=== PATIENT | female | born 1960 ===

== ENCOUNTER 2016-07-21 10:39 | Emergency (ER) | payer MEDICAID, MEDICARE, OTHER ==
[2016-07-21 10:40] VITALS: BMI 28.8
[2016-07-21 10:53] VITALS: TEMP 98.3
--- NOTE | 2016-07-21 11:31 | ED PDOC ---
Arrival/HPI - General Chief Complaint: Pain, Chronic Time Seen by Provider: 07/21/16 11:00 Historian: Patient - History of Present Illness Narrative History of Present Illness (Text): 07/21/16 11:31 A 55 year old female was sent to the emergency department by PMD for dizziness and lightheadedness. Patient reports she went to PMD to receive an injection for her back pain but instead was sent to emergency room for further evaluation. Patient reports worsening neck pain radiating to upper back and left shoulder for the past few years. She notes pain is exacerbated with movement. Patient reports she was recently diagnosed with H. pilori and notes she vomited the last dose of antibiotics she took. Patient denies any fever, chills, chest pain, shortness of breath, cough, headache, numbness, weakness or any other complaints. Patient also reports she was recently treated for a UTI and complicated antibiotic course. PMD: Dr. Jarad Eng Time/Duration: Prior to Arrival Symptom Course: Unchanged Quality: Other Context: Other Past Medical History - Provider Review Nursing Documentation Reviewed: Yes - Infectious Disease Hx of Infectious Diseases: None - Tetanus Immunization Tetanus Immunization: Unknown - Cardiac Hx Cardiac Disorders: No - Pulmonary Hx Respiratory Disorders: No - Neurological Hx Neurological Disorder: No - HEENT Hx HEENT Disorder: No - Renal Hx Renal Disorder: No - Endocrine/Metabolic Hx Endocrine Disorders: No - Hematological/Oncological Hx Blood Disorders: No - Integumentary Hx Dermatological Disorder: No - Musculoskeletal/Rheumatological Hx Musculoskeletal Disorders: Yes Hx Back Pain: Yes Hx Herniated Disk: Yes (CERVICAL AND LUMBAR) - Gastrointestinal Hx Gastrointestinal Disorders: Yes Hx Hemorrhoids: Yes Other/Comment: hpylori, barretts esophagus - Genitourinary/Gynecological Hx Genitourinary Disorders: No - Psychiatric Hx Psychophysiologic Disorder: Yes Hx Anxiety: Yes Hx Depression: Yes Hx Substance Use: No - Surgical History Hx Appendectomy: Yes Hx Hysterectomy: Yes (partial) - Anesthesia Hx Anesthesia: Yes Hx Anesthesia Reactions: No Hx Malignant Hyperthermia: No Family/Social History - Physician Review Nursing Documentation Reviewed: Yes Family/Social History: No Known Family HX Smoking Status: Light Smoker < 10 Cigarettes Daily Hx Alcohol Use: No Hx Substance Use: No Allergies/Home Meds Allergies/Adverse Reactions: Allergies Penicillins Allergy (Verified 07/21/16 10:58) URTICARIA Home Medications: Home Meds Medication Instructions Recorded Confirmed diaZEpam [Valium] 5 mg PO DAILY 05/04/16 07/21/16 Pantoprazole [Protonix EC Tab] 20 mg PO DAILY 07/21/16 07/21/16 Sertraline [Zoloft] 100 mg PO DAILY 07/21/16 07/21/16 traMADol [Ultram] 50 mg PO DAILY 07/21/16 07/21/16 traZODone [Desyrel] 100 mg PO DAILY 07/21/16 07/21/16 Review of Systems - Physician Review All systems were reviewed & negative as marked: Yes - Review of Systems Constitutional: absent: Fevers, Night Sweats Respiratory: absent: SOB Cardiovascular: absent: Chest Pain Gastrointestinal: Vomiting Musculoskeletal: Back Pain, Neck Pain, Other (left shoulder pain) Neurological: Dizziness (/Lightheadedness). absent: Headache, Focal Weakness (/ Numbness) Physical Exam Vital Signs Reviewed: Yes Vital Signs Temp Pulse Resp BP Pulse Ox 07/21/16 13:54 66 20 151/88 H 99 07/21/16 12:38 56 L 20 148/98 H 98 07/21/16 10:52 98.3 F 67 18 148/90 100 Temperature: Afebrile Blood Pressure: Normal Pulse: Regular Respiratory Rate: Normal Appearance: Positive for: Well-Appearing, Non-Toxic, Comfortable Pain Distress: None Mental Status: Positive for: Alert and Oriented X 3 - Systems Exam Head: Present: Atraumatic, Normocephalic Pupils: Present: PERRL Extroacular Muscles: Present: EOMI Conjunctiva: Present: Normal Mouth: Present: Moist Mucous Membranes Neck: Present: Normal Range of Motion Respiratory/Chest: Present: Clear to Auscultation, Good Air Exchange. No: Respiratory Distress, Accessory Muscle Use Cardiovascular: Present: Regular Rate and Rhythm, Normal S1, S2. No: Murmurs Abdomen: Present: Normal Bowel Sounds. No: Tenderness, Distention, Peritoneal Signs Back: Present: Normal Inspection Upper Extremity: Present: Normal Inspection. No: Cyanosis, Edema Lower Extremity: Present: Normal Inspection. No: Edema Neurological: Present: GCS=15, CN II-XII Intact, Speech Normal Skin: Present: Warm, Dry, Normal Color. No: Rashes Psychiatric: Present: Alert, Oriented x 3, Normal Insight, Normal Concentration Medical Decision Making ED Course and Treatment: 07/21/16 11:30 Impression: A 55 year old female sent in for lightheadedness and dizziness. Patient reports worsening neck pain radiating to upper back and left shoulder Differential Diagnosis included but are not limited to: Gastritis, recently diagnosed with H. pylori, Neck pain Plan: -- Labs -- Morphine and Zofran -- Reassess and disposition Progress Notes: EKG shows NSR at [address]-segment elevations, normal intervals. Interpreted by me. Case discussed with Dr. Jarad Eng, who states patient was seen prior to arrival to receive injections but became dizzy and lightheaded so he sent her in for further evaluation. On reevaluation prior to discharge patient felt better. Pain improved. She was able to rotated neck with improvement. No numbness or weakness. No back pain. She is able to walk without ataxia. She is able to tolerating fluids po without vomiting. 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 - Lab Interpretations Lab Results: 07/21/16 11:35 07/21/16 11:35 Lab Results 07/21/16 11:50: pO2 162 H, VBG pH 7.40, VBG pCO2 38.0 L, VBG HCO3 23.5, VBG O2 Sat (Calc) 99.7 H, VBG Base Excess -1.1 L 07/21/16 11:35: PT 10.5, INR 0.97, APTT 33.7 H 07/21/16 11:35: Sodium 140, Potassium 4.5, Chloride 105, Carbon Dioxide 26, Anion Gap 14, BUN 13, Creatinine 0.9, Est GFR ( Amer) > 60, Est GFR (Non- Af Amer) > 60, Random Glucose 99, Calcium 9.2, Total Bilirubin 0.5, AST 33, ALT 49, Alkaline Phosphatase 88, Total Protein 7.4, Albumin 4.1, Globulin 3.3, Albumin/Globulin Ratio 1.2, Lipase 37 07/21/16 11:35: WBC 7.9, RBC 4.81, Hgb 15.1, Hct 42.7, MCV 88.8, MCH 31.4, MCHC 35.4, RDW 13.4, Plt Count 252, MPV 10.6, Gran % 67.6, Lymph % (Auto) 25.3, [place] % (Auto) 6.3 H, Eos % (Auto) 0.5 L, Baso % (Auto) 0.3, Gran # 5.36, Lymph # 2.0 , [place] # 0.5, Eos # 0.0, Baso # 0.02 I have reviewed the lab results: Yes - Medication Orders Current Medication Orders: Discontinued Medications Diazepam (Valium) 10 mg PO ONCE STA PRN Reason: Protocol Stop: 07/21/16 12:25 Last Admin: 07/21/16 12:30 Dose: 10 mg Morphine Sulfate (Morphine) 4 mg IVP STAT STA Stop: 07/21/16 11:42 Last Admin: 07/21/16 11:47 Dose: 4 mg Ondansetron HCl (Zofran Inj) 4 mg IVP STAT STA Stop: 07/21/16 11:42 Last Admin: 07/21/16 11:47 Dose: 4 mg - Scribe Statement The provider has reviewed the documentation as recorded by the Manpreet Landaverde Provider Scribe Attestation: All medical record entries made by the Scribe were at my direction and personally dictated by me. I have reviewed the chart and agree that the record accurately reflects my personal performance of the history, physical exam, medical decision making, and the department course for this patient. I have also personally directed, reviewed, and agree with the discharge instructions and disposition. Disposition/Present on Arrival - Present on Arrival Any Indicators Present on Arrival: No History of DVT/PE: No History of Uncontrolled Diabetes: No Urinary Catheter: No History of Decub. Ulcer: No History Surgical Site Infection Following: None - Disposition Have Diagnosis and Disposition been Completed?: Yes Diagnosis: Neck pain, Abdominal pain Disposition: HOME/ ROUTINE Disposition Time: 14:14 Patient Plan: Discharge Condition: IMPROVED Discharge Instructions (ExitCare): Cervical Strain (DC) Additional Instructions: Ms Rice, thank you for letting us take care of you today. Your provider was Dr. Kim. You were treated for Neck Pain, Abdominal Pain. The emergency medical care you received today was directed at your acute symptoms. If you were prescribed any medication, please fill it and take as directed. It may take several days for your symptoms to resolve. Return to the Emergency Department if your symptoms worsen, do not improve, or if you have any other problems. Please contact your doctor or call one of the physicians/clinics you have been referred to that are listed on the Patient Visit Information form that is included in your discharge packet. Bring any paperwork you were given at discharge with you along with any medications you are taking to your follow up visit. Our treatment cannot replace ongoing medical care by a primary care provider (PCP) outside of the emergency department. Thank you for allowing the [facility] team to be part of your care today. If you had an X-Ray or CT scan: A Radiologist will review the ED reading if any change in treatment is needed we will contact you. If you had a blood, urine, or wound culture: It will take several days for the results, if any change in treatment is needed we will contact you. If you had an STI test: It will take 48 hours for the results. Please call after 1 week if you have not heard back. Prescriptions: Cyclobenzaprine [Flexeril] 5 mg PO Q8 PRN #14 tab PRN Reason: Muscle Spasm Ranitidine HCl [Zantac] 150 mg PO BID PRN #30 tablet PRN Reason: Pain, Mild (1-3) Referrals: Albertina CHUN,Jarad Bullard [Non-Staff] - Follow up with primary Forms: [employer]noise (Kiswahili), WORK NOTE
[2016-07-21] MEDS ORDERED: Sodium Chloride 0.9% 500 ML IV STA (11:32)
[2016-07-21] MEDS ORDERED: Morphine 4 mg/ml ISec IVP STA (11:41)
[2016-07-21 11:49] LABS: ADD MANUAL DIFF? NO
[2016-07-21 11:59] LABS: VENOUS BLOOD GAS BASE EXCESS -1.1 mmol/L (0.0-2.0)
[2016-07-21 12:02] LABS: BASO # 0.02 K/mm3 (0.0-2.0); BASO % 0.3 % (0.0-3.0); EOS % 0.5 % (1.5-5.0); GRAN # 5.36 (1.4-6.5); GRAN % 67.6 % (50.0-68.0); HEMATOCRIT 42.7 % (36.0-48.0); LYMPH % 25.3 % (22.0-35.0); MEAN CELL VOLUME 88.8 fL (80.0-105.0); MEAN CORPUSCULAR HEMOGLOBIN 31.4 pg (25.0-35.0); MEAN CORPUSCULAR HGB CONC 35.4 g/dl (31.0-37.0); MEAN PLATELET VOLUME 10.6 fl (7.0-11.0); MONO # 0.5 (0.1-0.6); MONO % 6.3 % (1.0-6.0); PLATELET COUNT 252 10^3/uL (120.0-450.0); RED CELL DISTRIBUTION WIDTH 13.4 % (11.5-14.5); WHITE BLOOD COUNT 7.9 10^3/ul (4.5-11.0)
[2016-07-21 12:08] LABS: ALB/GLOB RATIO 1.2 (1.1-1.8); ALKALINE PHOSPHATASE 88 U/L (38-133); ALT/SGPT 49 U/L (7-56); AST/SGOT 33 U/L (15-39); BILIRUBIN,TOTAL 0.5 mg/dL (0.2-1.3); BLOOD UREA NITROGEN 13 mg/dL (7-21); CALCIUM 9.2 mg/dL (8.4-10.5); CARBON DIOXIDE 26 mmol/L (21-33); CHLORIDE 105 mmol/L (98-107); GFR AFRICAN-AMERICAN > 60; GLUCOSE,RANDOM 99 mg/dL (70-110); LIPASE 37 U/L (23-300); POTASSIUM 4.5 mmol/L (3.6-5.0); SODIUM 140 mmol/L (132-148); TOTAL PROTEIN 7.4 g/dL (5.8-8.3)
[2016-07-21 12:19] LABS: INR 0.97 (0.93-1.08); PARTIAL THROMBOPLASTIN TIME 33.7 Seconds (23.7-30.8)
[2016-07-21 12:38] VITALS: RESP 20
[2016-07-21 13:54] VITALS: BP 151/88; PULSE 66; O2SAT 99
--- NOTE | 2016-07-21 22:44 | CARD ---
APPROVED REPORT EKG Measurement Heart [id number] <Conclusion> Normal sinus rhythm Normal ECG
== END 2016-07-21 14:14 | disposition home or self-care (01) ==
LOC: ED 10:39
DX: M54.2 Cervicalgia (principal); R10.9 Unspecified abdominal pain
CPT/HCPCS: 80053; 82803; 83690; 85025; 85610; 85730; 93005; 96374; 96375; 99285; J2270; J2405

== ENCOUNTER 2016-10-17 06:24 | Day surgery (SDC) | payer MEDICARE ==
[2016-10-17] MEDS ORDERED: Iohexol 240 (50 ml) ONE (07:23)
[2016-10-17 07:41] LABS: BASO # 0.05 K/mm3 (0.0-2.0); BASO % 0.7 % (0.0-3.0); EOS # 0.1 (0.0-0.7); EOS % 1.5 % (1.5-5.0); GRAN # 3.91 (1.4-6.5); GRAN % 56.8 % (50.0-68.0); HEMATOCRIT 42.8 % (36.0-48.0); LYMPH # 2.4 (1.2-3.4); LYMPH % 34.7 % (22.0-35.0); MEAN CORPUSCULAR HEMOGLOBIN 30.4 pg (25.0-35.0); MEAN CORPUSCULAR HGB CONC 34.1 g/dl (31.0-37.0); MEAN PLATELET VOLUME 10.9 fl (7.0-11.0); MONO # 0.4 (0.1-0.6); MONO % 6.3 % (1.0-6.0); RED CELL DISTRIBUTION WIDTH 13.4 % (11.5-14.5); WHITE BLOOD COUNT 6.9 10^3/ul (4.5-11.0)
[2016-10-17 07:47] LABS: INR 0.94 (0.93-1.08)
[2016-10-17] MEDS ORDERED: Midazolam 2 MG/2 ML VIAL ONE (08:00)
[2016-10-17] MEDS ORDERED: Propofol 10 mg/ml Inj (20 ML) ONE (08:00)
[2016-10-17] MEDS ORDERED: Rocuronium 10 mg/ml (5 ml) ONE (08:01)
[2016-10-17] MEDS ORDERED: Ciprofloxacin 400mg/200ml D5W 400 MG/200 ML BAG IVPB ONE (08:05)
[2016-10-17 08:11] LABS: AMYLASE 83 U/L (35-125); BLOOD UREA NITROGEN 12 mg/dL (7-21); CALCIUM 8.9 mg/dL (8.4-10.5); CARBON DIOXIDE 29 mmol/L (21-33); CHLORIDE 105 mmol/L (98-107); GFR AFRICAN-AMERICAN > 60; GLUCOSE,RANDOM 89 mg/dL (70-110); LIPASE 74 U/L (23-300); POTASSIUM 4.5 mmol/L (3.6-5.0); SODIUM 142 mmol/L (132-148)
[2016-10-17] MEDS: Bupivacaine 0.5% Inj(30mL) ONE ×2 (08:13→09:18)
[2016-10-17] MEDS ORDERED: Lactated Ringer's 1,000 ML IV SCH (08:30)
[2016-10-17] MEDS ORDERED: Sevoflurane - Inhalation Anesthetic Liq (250 ml) ONE (08:47)
[2016-10-17] MEDS ORDERED: Neostigmine Methylsulfate 3mg/3ml Syringe IV ONE (09:04)
[2016-10-17] MEDS ORDERED: Glycopyrrolate 0.2 mg/ml (2ml vial) ONE (09:04)
[2016-10-17] MEDS ORDERED: HYDROmorphone 0.5 mg/0.5 ml ISec IVP PRN (09:30)
[2016-10-17] MEDS ORDERED: HYDROmorphone 0.5 mg/0.5 ml ISec ONE ×4 (09:38→10:51)
[2016-10-17] MEDS ORDERED: HYDROmorphone 0.5 mg/0.5 ml ISec IVP ONE ×4 (09:38→10:35)
--- NOTE | 2016-10-17 09:50 | RAD ---
PROCEDURE: Operative cholangiogram HISTORY: CHOLANGIOGRAM OPERATIVE COMPARISON: TECHNIQUE: Fluoroscopy was provided in the operating room. 25.6 seconds of fluoroscopy time. Six images were submitted FINDINGS: Contrast flows into the duodenum without obstruction. There are no filling defects. IMPRESSION: As above
[2016-10-17] MEDS ORDERED: Oxycodone/Acetaminophen 5/325 mg Tab PO PRN (10:56)
--- NOTE | 2016-10-17 11:23 | OP ---
PROCEDURE DATE: 10/17/2016 PREOPERATIVE DIAGNOSES: Chronic cholecystitis and cholelithiasis. POSTOPERATIVE DIAGNOSES: Chronic cholecystitis and cholelithiasis. PROCEDURE PERFORMED: Laparoscopic cholecystectomy with intraoperative cholangiogram. SURGEON: Dmitri Rodriguez MD MAINTENANCE MECHANIC 2ND SHIFT: Dr. Lane. TYPE OF ANESTHESIA: General endotracheal anesthesia. ANESTHESIA ADMINISTERED BY: Jace Zhu MD ESTIMATED BLOOD LOSS: Minimal. SPECIMENS: Gallbladder and gallstones. INDICATIONS: The patient is a 55-year-old female with history of recurrent right upper quadrant abdominal pain associated with nausea and occasional vomiting. The patient was seen in the office. Noted to have an ultrasound showing presence of cholelithiasis and was scheduled for laparoscopic cholecystectomy. DESCRIPTION OF PROCEDURE: First standard time-out procedure took place and everybody in the room agreed as to the patient's identity, diagnoses, and procedure to be performed. Using 2 towel clips, the anterior abdominal wall was elevated and Veress needle was inserted through the small incision superior to the umbilicus. The area was previously then anesthetized with lidocaine mixed Marcaine. Once the pneumoperitoneum was obtained, a 12 mm trocar was inserted through this incision and careful evaluation of abdominal cavity revealed the presence of slightly distended gallbladder with some adhesions to the omentum. The second 5 mm trocar was inserted then in the subxiphoid position and careful dissection took place, where the omentum attached to the gallbladder was careful taken off and cystic duct area was exposed. The bladder was grabbed by the infundibulum and cystic duct was completely from its surrounding tissues along its course all the way up to the cystic duct and lymph node. The cystic artery, which was directly behind it was also visualized and from the surrounding tissue. Now the clip was placed on the take off of the cystic duct from the gallbladder and a small incision was made on the side of the cystic duct. The cystic duct cholangiocatheter was inserted and then the cholangiogram was obtained under direct visualization showing prompt flow of dye into the entire biliary tree and emptying of the duodenum without obstruction. I then proceeded with removing cystic duct catheter and clipping the cystic duct distally and transecting it. Cystic artery was also clipped and transected and the gallbladder was carefully taken off of the liver bed using electrocautery. Once completely detached from the liver the area of the right upper quadrant was copiously irrigated and all the irrigant fluid was suctioned out. There was excellent hemostasis. The gallbladder was placed in the EndoCatch bag and removed for the periumbilical incision. The pneumoperitoneum was then closed after the area of entry site of the ports and the abdominal cavity was inspected with direct vision through the scope without any evidence of bleeding. Now the trocars were removed and pneumoperitoneum was released and wounds were closed using 0 Vicryl for the fascia, 3-0 Vicryl for the subcutaneous tissue and 4-0 Monocryl for the skin. A sterile Dermabond dressing was applied to the wounds. The patient tolerated the procedure well and there were no complications. The patient was awakened and extubated and transferred to recovery room for further observation. Dmitri Rodriguez MD
[2016-10-17 12:04] VITALS: TEMP 97.5
[2016-10-17 13:01] VITALS: RESP 20; O2SAT 96
[2016-10-17 15:40] VITALS: BP 110/66; PULSE 18
--- NOTE | 2016-10-19 19:34 | PCM.SURG1 ---
Surgeon's Initial Post Op Note - Surgeon's Notes Surgeon: Michael Carpenter Bridge: PGY4 Pre-Operative Diagnosis: Chronic cholecystitis and cholelithiasis Operative Findings: see op note Post-Operative Diagnosis: Chronic cholecystitis and cholelithiasis Operation Performed: Laparoscopic cholecystectomy, intraoperative cholangiogram Specimen/Specimens Removed: gallbladder Estimated Blood Loss: EBL {In ML}: 10 Blood Products Given: N/A Drains Used: No Drains Post-Op Condition: Good Date of Surgery/Procedure: 10/17/16 Time of Surgery/Procedure: 07:56
== END 2016-10-17 15:45 | disposition home or self-care (01) ==
LOC: SDS 06:24
PROVIDERS: ATTEND General Practice
DX: K80.10 Calculus of gallbladder with chronic cholecystitis without obstruction (principal); E66.9 Obesity, unspecified
CPT/HCPCS: 36415; 47563; 74300; 80048; 82150; 83690; 85025; 85610; 85730; 88304; J0744; J1170; J2001; J2250; J2405; J2704; J2710; J3010; J7120 ×2; Q9966

== ENCOUNTER 2017-07-28 02:15 | Emergency (ER) | payer MEDICARE ==
[2017-07-28 02:45] VITALS: BMI 29.3
[2017-07-28] MEDS ORDERED: Morphine 4 mg/ml ISec IVP STA (02:48)
[2017-07-28 03:07] LABS: URINE BILIRUBIN NEGATIVE (NEGATIVE); URINE BLOOD NEGATIVE (NEGATIVE); URINE GLUCOSE (UA) NEGATIVE (NEGATIVE); URINE LEUKOCYTE ESTERASE TRACE Leu/uL (NEGATIVE); URINE PROTEIN NEGATIVE mg/dL (<30 mg/dL); URINE UROBILINOGEN 0.2 E.U./dL (<1 E.U./dL)
[2017-07-28 03:14] LABS: PROTHROMBIN TIME 10.4 SECONDS (9.4-12.5); URINE APPEARANCE CLEAR (CLEAR); URINE COLOR YELLOW (YELLOW)
[2017-07-28 03:15] LABS: INR 0.91 (0.93-1.08); PARTIAL THROMBOPLASTIN TIME 26.1 Seconds (25.1-36.5)
--- NOTE | 2017-07-28 03:15 | ED PDOC ---
Arrival/HPI - General Chief Complaint: Abdominal Pain Time Seen by Provider: 07/28/17 02:26 Historian: Patient - History of Present Illness Narrative History of Present Illness (Text): 56yo female with history of gastritis, presents with complaints of headache and abdominal pain with associated diarrhea and vomiting, approximately 3 episodes per day, for the past 2 days. Patient states she feels "hot and cold" and had right flank pain as well. She reports a history of ovarian cysts, denies any history of kidney stones or other abdominal surgeries. She denies any hematuria , dysuria, and offers no other medical complaints. Surgical history: Cholecystectomy, right shoulder surgery Past Medical History - Provider Review Nursing Documentation Reviewed: Yes - Travel History Have you recently traveled outside [place] w/in the past 3 mons?: No - Past History Past History: Non-Contributing - Infectious Disease Hx of Infectious Diseases: None - Tetanus Immunization Tetanus Immunization: Unknown - Cardiac Hx Cardiac Disorders: No - Pulmonary Hx Respiratory Disorders: No - Neurological Hx Neurological Disorder: Yes Hx Paralysis: No - HEENT Hx HEENT Disorder: No - Renal Hx Renal Disorder: No - Endocrine/Metabolic Hx Endocrine Disorders: No - Hematological/Oncological Hx Blood Disorders: No Hx Blood Transfusions: No - Integumentary Hx Dermatological Disorder: No - Musculoskeletal/Rheumatological Hx Musculoskeletal Disorders: Yes Hx Back Pain: Yes Hx Herniated Disk: Yes (CERVICAL AND LUMBAR) Hx Osteoarthritis: Yes Hx Osteoporosis: Yes - Gastrointestinal Hx Gastrointestinal Disorders: Yes Hx Gastroesophageal Reflux: Yes Hx Hemorrhoids: Yes Other/Comment: h. pylori, barretts esophagus - Genitourinary/Gynecological Hx Genitourinary Disorders: No - Psychiatric Hx Psychophysiologic Disorder: Yes Hx Anxiety: Yes Hx Depression: Yes Hx Substance Use: No - Surgical History Hx Appendectomy: Yes Hx Cholecystectomy: Yes Hx Hysterectomy: Yes (partial) - Anesthesia Hx Anesthesia: Yes Hx Anesthesia Reactions: No Hx Malignant Hyperthermia: No - Suicidal Assessment Feels Threatened In Home Enviroment: No Family/Social History - Physician Review Nursing Documentation Reviewed: Yes Family/Social History: No Known Family HX Smoking Status: Never Smoked Hx Alcohol Use: No Hx Substance Use: No Allergies/Home Meds Allergies/Adverse Reactions: Allergies Penicillins Allergy (Severe, Verified 07/28/17 02:31) CONVULSIONS Home Medications: Home Meds Medication Instructions Recorded Confirmed Diclofenac Sodium [Voltaren] 25 mg PO BID 07/28/17 07/28/17 Omeprazole 40 mg PO DAILY 07/28/17 07/28/17 Sertraline [Zoloft] 100 mg PO DAILY 07/28/17 07/28/17 Review of Systems - Physician Review All systems were reviewed & negative as marked: Yes - Review of Systems Constitutional: Other (feels "hot and cold") Respiratory: absent: SOB Cardiovascular: absent: Chest Pain Gastrointestinal: Abdominal Pain, Diarrhea, Vomiting Genitourinary Female: absent: Dysuria, Hematuria Neurological: Headache Physical Exam Vital Signs Reviewed: Yes Vital Signs Temp Pulse Resp BP Pulse Ox 07/28/17 05:09 98.0 F 76 18 125/86 100 07/28/17 03:53 85 18 142/92 H 100 07/28/17 02:34 98.1 F 90 20 152/93 H 100 Temperature: Afebrile Pulse: Regular Respiratory Rate: Normal Appearance: Positive for: Well-Appearing, Non-Toxic, Comfortable Pain Distress: Mild Mental Status: Positive for: Alert and Oriented X 3 - Systems Exam Head: Present: Atraumatic, Normocephalic Pupils: Present: PERRL Extroacular Muscles: Present: EOMI Mouth: Present: Moist Mucous Membranes Neck: Present: Normal Range of Motion Respiratory/Chest: Present: Clear to Auscultation, Good Air Exchange. No: Respiratory Distress, Accessory Muscle Use Cardiovascular: Present: Regular Rate and Rhythm, Normal S1, S2. No: Murmurs Abdomen: Present: Tenderness (diffuse tenderness to upper adbomen, right flank ) . No: Distention, Peritoneal Signs Upper Extremity: Present: Normal Inspection. No: Cyanosis, Edema Lower Extremity: Present: Normal Inspection. No: Edema Neurological: Present: GCS=15, CN II-XII Intact, Speech Normal Skin: Present: Warm, Dry, Normal Color. No: Rashes Psychiatric: Present: Alert, Oriented x 3, Normal Insight, Normal Concentration Medical Decision Making ED Course and Treatment: Impression: 56yo female with abdominal pain, headache Differential Diagnosis included but are not limited to: Gastritis, gastroenteritis, pancreatitis, appendicitis, SBO, IBS Plan: -- Labs -- CT Abdomen/Pelvis w/ IV Contrast -- Urinalysis -- Morphine 4mg IV -- Zofran 4mg IV -- IV Fluids -- Reassess and disposition Prior Visits: Notes and results from previous visits were reviewed. Patient was last seen in the emergency department on 07/21/16 for neck pain, and was discharged home. Progress Notes: 07/28/17 04:00 Patient reports persistent pain and nausea. Patient given Dilaudid 1mg IVP and Zofran 4mg IVP. 07/28/17 04:47 Labs reviewed and indicates: -- Elevated LFT (isloated) -- Normal white cough -- Negative lactic acid -- Normal lipase Urinalysis unremarkable. 07/28/17 05:47 Patient reports allergic reaction to the morphine (mild hives noted). Benadryl 25mg IVP given. 07/28/17 06:00 Mild elevation of transaminase, doubt hepatitis and presentation is most likely due to enteritis. Patient to be prescribed anti-emetics and anti-diarrheals. Patient counseled on elevated blood pressure as well. Stable for discharge home, instructed to follow up with PMD in 2-3 days. - Lab Interpretations Lab Results: 07/28/17 02:52 07/28/17 02:52 Lab Results 07/28/17 03:56: Urine Opiates Screen Negative, Urine Methadone Screen Negative, Ur Barbiturates Screen Negative, Ur Phencyclidine Scrn Negative, Ur Amphetamines Screen Negative, U Benzodiazepines Scrn Negative, U Oth Cocaine Metabols Negative, U Cannabinoids Screen Negative 07/28/17 02:52: pO2 75 H, VBG pH 7.33, VBG pCO2 42.0, VBG HCO3 22.1, VBG Total CO2 23.4, VBG O2 Sat (Calc) 97.1 H, VBG Base Excess -3.7 L, VBG Potassium 4.5, Sodium 138.0, Chloride 110.0 H, Glucose 113 H, Lactate 0.9, FiO2 21.0, Venous Blood Potassium 4.5 07/28/17 02:52: Sodium 143, Chloride 110 H, Potassium 4.5, Carbon Dioxide 22, Anion Gap 16, BUN 14, Creatinine 0.8, Est GFR ( Amer) > 60, Est GFR (Non- Af Amer) > 60, Random Glucose 111 H, Calcium 8.9, Total Bilirubin 0.3, AST 43 H D, ALT 67 H, Alkaline Phosphatase 104, Total Protein 7.1, Albumin 4.0, Globulin 3.1, Albumin/Globulin Ratio 1.3, Lipase 54 07/28/17 02:52: Urine Color Yellow, Urine Appearance Clear, Urine pH 6.0, Ur Specific [place] 1.015, Urine Protein Negative, Urine Glucose (UA) Negative, Urine Ketones Negative, Urine Blood Negative, Urine Nitrate Negative, Urine Bilirubin Negative, Urine Urobilinogen 0.2, Ur Leukocyte Esterase Trace H, Urine RBC 0 - 2, Urine WBC 1 - 3, Ur Epithelial Cells 3 - 4, Urine Bacteria Few 07/28/17 02:52: PT 10.4, INR 0.91 L, APTT 26.1 07/28/17 02:52: WBC 9.3 D, RBC 4.54, Hgb 13.9, Hct 39.7, MCV 87.4, MCH 30.6, MCHC 35.0, RDW 13.4, Plt Count 259, MPV 10.5, Gran % 76.3 H, Lymph % (Auto) 17.1 L, [place] % (Auto) 4.7, Eos % (Auto) 1.7, Baso % (Auto) 0.2, Gran # 7.07 H, Lymph # (Auto) 1.6, [place] # (Auto) 0.4, Eos # (Auto) 0.2, Baso # (Auto) 0.02 - RAD Interpretation Narrative RAD Interpretations (Text): 07/28/17 06:03 CT Abdomen/Pelvis FINDINGS: Lung bases: Unremarkable. No mass. No consolidation. ABDOMEN: Liver: Fatty liver. Gallbladder and bile ducts: Prior cholecystectomy. No significant ductal dilation. Pancreas: Unremarkable. No mass. No ductal dilation. Spleen: Unremarkable. No splenomegaly. Adrenals: Unremarkable. No mass. Kidneys and ureters: Unremarkable. No solid mass. No hydronephrosis. Stomach and bowel: Few prominent fluid filled loops of small bowel nonspecific but can be seen in the setting of enteritis or other diarrheal illness. No evidence of obstruction. No mucosal thickening. PELVIS: Appendix: Normal appendix not clearly identified. No secondary signs of acute appendicitis. Bladder: Unremarkable. No mass. Reproductive: Prior hysterectomy. ABDOMEN and PELVIS: Intraperitoneal space: Unremarkable. No free air. No significant fluid collection. Bones/joints: No acute fracture. No dislocation. Soft tissues: Unremarkable. Vasculature: Unremarkable. No abdominal aortic aneurysm. Lymph nodes: Unremarkable. No enlarged lymph nodes. IMPRESSION: 1. Few prominent fluid filled loops of small bowel nonspecific but can be seen in the setting of enteritis or other diarrheal illness. No evidence of obstruction. 2. Fatty liver. 3. Additional chronic/incidental findings as described above. Radiology Orders: 07/28/17 02:47 ABD & PELVIS IV CONTRAST ONLY [CT] Stat - Medication Orders Current Medication Orders: Discontinued Medications Diphenhydramine HCl (Benadryl) 25 mg IVP STAT STA Stop: 07/28/17 05:48 Last Admin: 07/28/17 05:51 Dose: 25 mg IVP Administration Document 07/28/17 05:51 (Rec: 07/28/17 05:52 [id number]) Charges for Administration # of IVP Administrations 1 Hydromorphone HCl (Dilaudid) 1 mg IVP STAT STA Stop: 07/28/17 04:00 Last Admin: 07/28/17 04:20 Dose: 1 mg MAR Pain Assessment Document 07/28/17 04:20 (Rec: 07/28/17 04:39 [place] [id number]) Pain Reassessment Is this a pain reassessment? Yes Pain Scale Used Pain Scale Used Numeric Location Pain Location Body Site Generalized Description Description Sharp Pain Behavior Moaning Crying IVP Administration Document 07/28/17 04:20 (Rec: 07/28/17 04:39 [place] [id number]) Charges for Administration # of IVP Administrations 1 Morphine Sulfate (Morphine) 4 mg IVP STAT STA Stop: 07/28/17 02:49 Last Admin: 07/28/17 03:31 Dose: 4 mg MAR Pain Assessment Document 07/28/17 03:31 (Rec: 07/28/17 03:31 [id number]) Pain Reassessment Is this a pain reassessment? Yes Location Pain Location Body Site Generalized Description Description Constant IVP Administration Document 07/28/17 03:31 (Rec: 07/28/17 03:31 [id number]) Charges for Administration # of IVP Administrations 1 Re-Assess: MAR Pain Assessment Document 07/28/17 04:31 (Rec: 07/28/17 05:52 [id number]) Pain Reassessment Is this a pain reassessment? Yes Presence of Pain Presence of Pain Yes Description Pain not relieved and LIP/MD was Yes notified Ondansetron HCl (Zofran Inj) 4 mg IVP STAT STA Stop: 07/28/17 02:48 Last Admin: 07/28/17 03:31 Dose: 4 mg IVP Administration Document 07/28/17 03:31 RG (Rec: 07/28/17 03:31 RG [id number]) Charges for Administration # of IVP Administrations 1 Ondansetron HCl (Zofran Inj) 4 mg IVP STAT STA Stop: 07/28/17 04:01 Last Admin: 07/28/17 04:39 Dose: 4 mg IVP Administration Document 07/28/17 04:39 RG (Rec: 07/28/17 04:40 RG [id number]) Charges for Administration # of IVP Administrations 1 - Scribe Statement The provider has reviewed the documentation as recorded by the Wesleyibe Aminah Rodriguez Provider Scribe Attestation: All medical record entries made by the Scribe were at my direction and personally dictated by me. I have reviewed the chart and agree that the record accurately reflects my personal performance of the history, physical exam, medical decision making, and the department course for this patient. I have also personally directed, reviewed, and agree with the discharge instructions and disposition. Disposition/Present on Arrival - Present on Arrival Any Indicators Present on Arrival: No History of DVT/PE: No History of Uncontrolled Diabetes: No Urinary Catheter: No History of Decub. Ulcer: No History Surgical Site Infection Following: None - Disposition Have Diagnosis and Disposition been Completed?: Yes Diagnosis: Gastroenteritis Disposition: HOME/ ROUTINE Patient Plan: Discharge Patient Problems: Current Active Problems Problem Status Onset Gastroenteritis Acute Condition: IMPROVED Forms: [facility] ([place])
[2017-07-28 03:17] LABS: URINE BACTERIA FEW (NEG); URINE RBC 0 - 2 /hpf (0-2)
[2017-07-28 03:25] LABS: ALB/GLOB RATIO 1.3 (1.1-1.8); ALT/SGPT 67 U/L (7-56); AST/SGOT 43 U/L (14-36); BLOOD UREA NITROGEN 14 mg/dL (7-21); CALCIUM 8.9 mg/dL (8.4-10.5); GFR AFRICAN-AMERICAN > 60; GFR NON-AFRICAN AMERICAN > 60; LIPASE 54 U/L (23-300)
[2017-07-28 03:28] LABS: VENOUS BLOOD GAS BASE EXCESS -3.7 mmol/L (0.0-2.0); VENOUS BLOOD GAS PO2 75 mm/Hg (30-55); VENOUS BLOOD PH 7.33 (7.32-7.43)
[2017-07-28] MEDS ORDERED: Iohexol 350 MG/100 ML VIAL ONE (03:29)
[2017-07-28 03:30] LABS: BASO # 0.02 K/mm3 (0.0-2.0); BASO % 0.2 % (0.0-3.0); EOS # 0.2 (0.0-0.7); EOS % 1.7 % (1.5-5.0); GRAN # 7.07 (1.4-6.5); GRAN % 76.3 % (50.0-68.0); HEMOGLOBIN 13.9 g/dL (12.0-16.0); LYMPH # 1.6 (1.2-3.4); LYMPH % 17.1 % (22.0-35.0); MEAN CELL VOLUME 87.4 fl (80.0-105.0); MEAN CORPUSCULAR HEMOGLOBIN 30.6 pg (25.0-35.0); MEAN PLATELET VOLUME 10.5 fl (7.0-11.0); MONO # 0.4 (0.1-0.6); MONO % 4.7 % (1.0-6.0); RBC 4.54 10^6/uL (3.5-6.1); RED CELL DISTRIBUTION WIDTH 13.4 % (11.5-14.5); WHITE BLOOD COUNT 9.3 10^3/ul (4.5-11.0)
[2017-07-28 03:54] VITALS: RESP 18
[2017-07-28] MEDS ORDERED: HYDROmorphone 0.5 mg/0.5 ml ISec IVP STA (03:59)
[2017-07-28 04:30] LABS: BENZODIAZEPINES, UR NEGATIVE (NEGATIVE)
[2017-07-28 04:39] LABS: BARBITURATES, UR NEGATIVE (NEGATIVE); OPIATES, UR NEGATIVE (NEGATIVE); PHENCYCLIDINE, UR NEGATIVE (NEGATIVE)
[2017-07-28 05:10] VITALS: TEMP 98
[2017-07-28] MEDS ORDERED: DiphenhydrAMINE 50 mg/ml Inj IVP STA (05:47)
[2017-07-28] MEDS ORDERED: DiphenhydrAMINE 50 mg/ml Inj ONE (05:48)
[2017-07-28 07:21] VITALS: BP 130/77; PULSE 72; O2SAT 98
--- NOTE | 2017-07-28 11:07 | CT ---
PROCEDURE: CT Abdomen and Pelvis with contrast HISTORY: abd pain COMPARISON: None. TECHNIQUE: Contrast dose: 100 cc of Omni 350 Radiation dose: Total exam DLP = 1033 mGy-cm. This CT exam was performed using one or more of the following dose reduction techniques: Automated exposure control, adjustment of the mA and/or kV according to patient size, and/or use of iterative reconstruction technique. FINDINGS: LOWER THORAX: Unremarkable. LIVER: There is fatty infiltration of the liver. GALLBLADDER AND BILE DUCTS: Gallbladder has been removed PANCREAS: Unremarkable. No gross lesion or ductal dilatation. SPLEEN: Unremarkable. ADRENALS: Unremarkable. No mass. KIDNEYS AND URETERS: Unremarkable. No hydronephrosis. No solid mass. VASCULATURE: Unremarkable. No aortic aneurysm. BOWEL: Unremarkable. No obstruction. No gross mural thickening. APPENDIX: Normal appendix. PERITONEUM: Unremarkable. No free fluid. No free air. LYMPH NODES: Unremarkable. No enlarged lymph nodes. BLADDER: Unremarkable. REPRODUCTIVE: Unremarkable. BONES: No acute fracture. OTHER FINDINGS: The report concurs with the preliminary [facility] report IMPRESSION: No acute intra-abdominal findings. Fatty infiltration of the liver
== END 2017-07-28 06:35 | disposition home or self-care (01) ==
LOC: ED 02:15
DX: K52.9 Noninfective gastroenteritis and colitis, unspecified (principal)
CPT/HCPCS: 74177; 80053; 81001; 82803; 83690; 85025; 85610; 85730; 87086; 96374; 96375; 96376; 99284; G0480; J1170; J1200; J2270; J2405; J7030; Q9967

== ENCOUNTER 2018-05-05 13:00 | Emergency (ER) | payer MEDICARE ==
[2018-05-05 13:00] VITALS: BMI 29.3
[2018-05-05 13:10] VITALS: TEMP 98.2
--- NOTE | 2018-05-05 13:33 | ED PDOC ---
Arrival/HPI - General Chief Complaint: Allergic Reaction Time Seen by Provider: 05/05/18 13:03 Historian: Patient - History of Present Illness Narrative History of Present Illness (Text): 05/05/18 13:34 57 year old female, with a past medical history of osteoporosis, arthritis, and fibromyalgia, who presents to the emergency department complaining of an intermittent right sided lower back pain, described as "knotting", onset 3 days ago. Patient reports pain is exacerbated at night and with movement. She also reports a hot sensation in her feet. Patient endorses fever onset 3 days ago, and states she took Tylenol, with some relief. Patient also endorses dysuria and frequency in urination. She denies any nausea, vomiting, abdominal pain, chills, shortness of breath, chest pain, or any other complaints. Patient reports taking percocet for chronic back pain, which she states is not bothering her currently. PMD: Dr. Eng Time/Duration: < week Symptom Onset: Gradual Symptom Course: Unchanged Activities at Onset: Light Context: Home Past Medical History - Provider Review Nursing Documentation Reviewed: Yes - Past History Past History: Non-Contributing - Infectious Disease Hx of Infectious Diseases: None - Tetanus Immunization Tetanus Immunization: Unknown - Cardiac Hx Cardiac Disorders: No - Pulmonary Hx Respiratory Disorders: No - Neurological Hx Neurological Disorder: Yes - HEENT Hx HEENT Disorder: No - Renal Hx Renal Disorder: No - Endocrine/Metabolic Hx Endocrine Disorders: No - Hematological/Oncological Hx Blood Disorders: No - Integumentary Hx Dermatological Disorder: No - Musculoskeletal/Rheumatological Hx Musculoskeletal Disorders: Yes Hx Osteoporosis: Yes - Gastrointestinal Hx Gastrointestinal Disorders: Yes - Genitourinary/Gynecological Hx Genitourinary Disorders: No - Psychiatric Hx Psychophysiologic Disorder: Yes Hx Anxiety: Yes Hx Depression: Yes Hx Substance Use: No - Surgical History Hx Appendectomy: Yes Hx Cholecystectomy: Yes - Anesthesia Hx Anesthesia: Yes Hx Anesthesia Reactions: No Hx Malignant Hyperthermia: No - Suicidal Assessment Feels Threatened In Home Enviroment: No Family/Social History - Physician Review Nursing Documentation Reviewed: Yes Family/Social History: Unknown Family HX Smoking Status: Never Smoked Hx Alcohol Use: No Hx Substance Use: No Allergies/Home Meds Allergies/Adverse Reactions: Allergies Penicillins Allergy (Severe, Verified 05/05/18 13:02) CONVULSIONS Home Medications: Home Meds Medication Instructions Recorded Confirmed Diclofenac Sodium [Voltaren] 25 mg PO BID 07/28/17 08/18/17 Omeprazole 40 mg PO DAILY 07/28/17 08/18/17 Sertraline [Zoloft] 100 mg PO DAILY 07/28/17 08/18/17 Review of Systems - Physician Review All systems were reviewed & negative as marked: Yes - Review of Systems Constitutional: Fevers Respiratory: absent: SOB, Cough Cardiovascular: absent: Chest Pain Gastrointestinal: absent: Abdominal Pain, Nausea, Vomiting Genitourinary Female: Dysuria, Frequency Musculoskeletal: Back Pain (right sided lower back pain). absent: Neck Pain Neurological: absent: Headache, Dizziness Physical Exam Vital Signs Reviewed: Yes Vital Signs Temp Pulse Resp BP Pulse Ox 05/05/18 13:02 98.2 F 77 16 122/84 99 Temperature: Afebrile Blood Pressure: Normal Pulse: Regular Respiratory Rate: Normal Appearance: Positive for: Well-Appearing, Non-Toxic, Comfortable Pain Distress: None Mental Status: Positive for: Alert and Oriented X 3 - Systems Exam Head: Present: Atraumatic, Normocephalic Pupils: Present: PERRL Extroacular Muscles: Present: EOMI Conjunctiva: Present: Normal Mouth: Present: Moist Mucous Membranes Neck: Present: Normal Range of Motion Respiratory/Chest: Present: Clear to Auscultation, Good Air Exchange. No: Respiratory Distress, Accessory Muscle Use Cardiovascular: Present: Regular Rate and Rhythm, Normal S1, S2. No: Murmurs Abdomen: No: Tenderness, Distention, Peritoneal Signs Back: Present: CVA Tenderness (right sided ), Other (Left lumbar tenderness ) Upper Extremity: Present: Normal Inspection. No: Cyanosis, Edema Lower Extremity: Present: Normal Inspection, Other (+ straight leg raise test, right). No: Edema Neurological: Present: Speech Normal Skin: Present: Warm, Dry, Normal Color. No: Rashes Psychiatric: Present: Alert, Oriented x 3, Normal Insight, Normal Concentration Medical Decision Making ED Course and Treatment: 05/05/18 13:33 Impression: 57 year old female presents to the Emergency department complaining of right sided lower back pain x 3 days. Differential Diagnosis included but are not limited to: r/o kidney stones v musculoskeletal pain. Plan: -- CT a/p -- Labs -- Lidoderm -- Flexeril -- Toradol -- Tylenol -- Urinalysis -- IV Fluids -- Reassess and disposition Prior Visits: Notes and results from previous visits were reviewed. Progress Notes: 05/05/18 15:01 CT a/p reviewed by radiologist, shows: Unremarkable non contrast enhanced CT of the abdomen and pelvis. 05/05/18 15:03 Patient Name / ID : RAJNI ESTRADA / [id number] PROCEDURE: CT Abdomen and Pelvis without intravenous contrast IMPRESSION: Unremarkable non contrast enhanced CT of the abdomen and pelvis. 05/05/18 15:36 Labs reviewed and normal. UA negative. CT with no stones or pyelo. Patient's pain is musculoskeletal. She is feeling better and is able to walk without discomfort. She will make sure to follow up with her PMD this week and advised to return to the ED if symptoms worsen or any other concern. - Scribe Statement The provider has reviewed the documentation as recorded by the Scribe Artur Pretty All medical record entries made by the Scribe were at my direction and personally dictated by me. I have reviewed the chart and agree that the record accurately reflects my personal performance of the history, physical exam, medical decision making, and the department course for this patient. I have also personally directed, reviewed, and agree with the discharge instructions and disposition. Disposition/Present on Arrival - Present on Arrival Any Indicators Present on Arrival: No History of DVT/PE: No History of Uncontrolled Diabetes: No Urinary Catheter: No History of Decub. Ulcer: No History Surgical Site Infection Following: None - Disposition Have Diagnosis and Disposition been Completed?: Yes Diagnosis: Back pain Disposition: HOME/ ROUTINE Disposition Time: 15:37 Patient Plan: Discharge Patient Problems: Current Active Problems Problem Status Onset Back pain Acute Condition: IMPROVED Discharge Instructions (ExitCare): Low Back Pain in Adults Additional Instructions: SEAN URBAN, thank you for letting us take care of you today. Your provider was Milton Kim DO and you were treated for Back pain. The emergency medical care you received today was directed at your acute symptoms. If you were prescribed any medication, please fill it and take as directed. It may take several days for your symptoms to resolve. Return to the Emergency Department if your symptoms worsen, do not improve, or if you have any other problems. Please contact your doctor or call one of the physicians/clinics you have been referred to that are listed on the Patient Visit Information form that is included in your discharge packet. Bring any paperwork you were given at discharge with you along with any medications you are taking to your follow up visit. Our treatment cannot replace ongoing medical care by a primary care provider outside of the emergency department. Thank you for allowing the [facility] team to be part of your care today. If you had an X-Ray or CT scan: A Radiologist will review the ED reading if any change in treatment is needed we will contact you. If you had a blood, urine, or wound culture: It will take several days for the results, if any change in treatment is needed we will contact you. If you had an STI test: It will take 48 hours for the results. Please call after 1 week if you have not heard back. Prescriptions: Cyclobenzaprine [Flexeril] 5 mg PO TID PRN #20 tab PRN Reason: Muscle Spasm Ibuprofen [Motrin] 600 mg PO Q6 PRN #30 tab PRN Reason: Pain, Moderate (4-7) Lidocaine 5% [Lidoderm] 1 ea TD DAILY PRN #4 patch PRN Reason: Pain, Moderate (4-7) Referrals: Albertina CHUN,Jarad Bullard [Primary Care Provider] - Follow up with primary Forms: [employer] ([place])
[2018-05-05] MEDS ORDERED: Sodium Chloride 0.9% 1,000 ML IV STA (13:34)
[2018-05-05] MEDS ORDERED: Lidocaine 5% Patch TD STA (13:35)
[2018-05-05 14:26] LABS: BASO # 0.02 K/mm3 (0.0-2.0); BASO % 0.3 % (0.0-3.0); EOS # 0.1 (0.0-0.7); EOS % 1.6 % (1.5-5.0); HEMOGLOBIN 14.5 g/dL (12.0-16.0); LYMPH # 2.7 (1.2-3.4); LYMPH % 39.6 % (22.0-35.0); MEAN CELL VOLUME 90.3 fl (80.0-105.0); MEAN CORPUSCULAR HEMOGLOBIN 30.7 pg (25.0-35.0); MONO # 0.5 (0.1-0.6); MONO % 6.7 % (1.0-6.0); RBC 4.73 10^6/uL (3.5-6.1); RED CELL DISTRIBUTION WIDTH 13.2 % (11.5-14.5); WHITE BLOOD COUNT 6.8 10^3/uL (4.5-11.0)
[2018-05-05 14:46] LABS: ALB/GLOB RATIO 1.2 (1.1-1.8); BLOOD UREA NITROGEN 14 mg/dL (7-21); CALCIUM 9.1 mg/dL (8.4-10.5); GFR NON-AFRICAN AMERICAN > 60
[2018-05-05 14:52] LABS: ALT/SGPT 21 U/L (7-56); AST/SGOT 32 U/L (14-36)
--- NOTE | 2018-05-05 14:54 | CT ---
Date of service: 05/05/2018 PROCEDURE: CT Abdomen and Pelvis without intravenous contrast HISTORY: right flank pain COMPARISON: None. TECHNIQUE: Technique. Contrast dose: Radiation dose: Total exam DLP = 678.24 mGy-cm. This CT exam was performed using one or more of the following dose reduction techniques: Automated exposure control, adjustment of the mA and/or kV according to patient size, and/or use of iterative reconstruction technique. FINDINGS: LOWER THORAX: Unremarkable. LIVER: Unremarkable. No gross lesion or ductal dilatation. GALLBLADDER AND BILE DUCTS: Gallbladder removed PANCREAS: Unremarkable. No gross lesion or ductal dilatation. SPLEEN: Unremarkable. ADRENALS: Unremarkable. No mass. KIDNEYS AND URETERS: Unremarkable. No hydronephrosis. No solid mass. VASCULATURE: Unremarkable. No aortic aneurysm. No aortic atherosclerotic calcification or mural plaque present. BOWEL: Unremarkable. No obstruction. No gross mural thickening. There is [id number] constipation APPENDIX: Unremarkable. Normal appendix. PERITONEUM: Unremarkable. No free fluid. No free air. LYMPH NODES: Unremarkable. No enlarged lymph nodes. BLADDER: Unremarkable. REPRODUCTIVE: Hysterectomy BONES: No acute fracture. OTHER FINDINGS: None. IMPRESSION: Unremarkable non contrast enhanced CT of the abdomen and pelvis.
[2018-05-05] MEDS ORDERED: Oxycodone/Acetaminophen 5/325 mg Tab PO STA (15:06)
[2018-05-05 15:23] VITALS: BP 123/78; PULSE 63; RESP 18; O2SAT 100
[2018-05-05 15:30] LABS: URINE BILIRUBIN NEGATIVE (NEGATIVE); URINE BLOOD NEGATIVE (NEGATIVE); URINE GLUCOSE (UA) NEGATIVE (NEGATIVE); URINE LEUKOCYTE ESTERASE NEGATIVE Leu/uL (NEGATIVE); URINE PROTEIN NEGATIVE mg/dL (<30 mg/dL); URINE UROBILINOGEN 0.2 E.U./dL (<1 E.U./dL)
[2018-05-05 15:31] LABS: URINE APPEARANCE CLEAR (CLEAR); URINE COLOR LIGHT YELLOW (YELLOW)
== END 2018-05-05 15:43 | disposition home or self-care (01) ==
LOC: ED 13:00
DX: M54.5 Low back pain (principal)
CPT/HCPCS: 74176; 80053; 81003; 85025; 96374; 99284; J1885; J7030

== ENCOUNTER 2018-05-12 11:34 | Emergency (ER) | payer MEDICARE ==
[2018-05-12 11:35] VITALS: BMI 29.3
[2018-05-12] MEDS ORDERED: Sodium Chloride 0.9% 1,000 ML IV SCH (12:15)
--- NOTE | 2018-05-12 12:43 | ED PDOC ---
Arrival/HPI - General Chief Complaint: Abdominal Pain Time Seen by Provider: 05/12/18 12:07 - History of Present Illness Narrative History of Present Illness (Text): 57 yr old Female w/ hx of fibromyalgia, osteoperosis, anxiety, depression, gastritis presents with abdominal pain. Pt notes abdominal pain since the end of last month, recently worsened over the past 3 days. She notes that she was seen here for similar abdominal pain 05/05 and that pain is re-occuring. She denies any fall or trauma. She notes that her abdominal pain feels like a crampy abdominal pain in her epigastric area radiating to her lower R flank and back. No midline pain or rash. No enuresis, encoparesis or loss of sensation in her legs. She denies taking any medications for the pain. She also notes dysuria and notes that she is currently being treated with an inhaler and levoquin for a uti. She also notes bloody stool x1 yesterday with diarrhea. She notes one episode of vomiting x1 non bloody, non dark. She notes chest pain after vomiting, burning sensation, no pressure sensation or radiation of chest pain. +fever, chills No SI or HI or current depression / anxiety / hallucinations No other complaints. 05/12/18 13:00 Past Medical History - Past History Past History: Non-Contributing - Infectious Disease Hx of Infectious Diseases: None - Tetanus Immunization Tetanus Immunization: Unknown - Reproductive Menopause: Yes - Cardiac Hx Cardiac Disorders: No - Pulmonary Hx Respiratory Disorders: No - Neurological Hx Neurological Disorder: Yes - HEENT Hx HEENT Disorder: No - Renal Hx Renal Disorder: No - Endocrine/Metabolic Hx Endocrine Disorders: No - Hematological/Oncological Hx Blood Disorders: No - Integumentary Hx Dermatological Disorder: No - Musculoskeletal/Rheumatological Hx Musculoskeletal Disorders: Yes Hx Osteoporosis: Yes - Gastrointestinal Hx Gastrointestinal Disorders: Yes - Genitourinary/Gynecological Hx Genitourinary Disorders: No - Psychiatric Hx Psychophysiologic Disorder: Yes Hx Anxiety: Yes Hx Depression: Yes Hx Substance Use: No - Surgical History Hx Appendectomy: Yes Hx Cholecystectomy: Yes - Anesthesia Hx Anesthesia: Yes Hx Anesthesia Reactions: No Hx Malignant Hyperthermia: No - Suicidal Assessment Feels Threatened In Home Enviroment: No Family/Social History Family/Social History: Unknown Family HX Smoking Status: Never Smoked Hx Alcohol Use: No Hx Substance Use: No Allergies/Home Meds Allergies/Adverse Reactions: Allergies Penicillins Allergy (Severe, Verified 05/05/18 13:02) CONVULSIONS Home Medications: Home Meds Medication Instructions Recorded Confirmed Diclofenac Sodium [Voltaren] 25 mg PO BID 07/28/17 08/18/17 Omeprazole 40 mg PO DAILY 07/28/17 08/18/17 Sertraline [Zoloft] 100 mg PO DAILY 07/28/17 08/18/17 Review of Systems - Review of Systems Constitutional: absent: Fatigue, Weight Change, Fevers Eyes: absent: Vision Changes, Photophobia, Eye Pain ENT: absent: Hearing Changes, Tinnitus, TMJ Pain Respiratory: absent: SOB, Cough, Sputum, Wheezing Cardiovascular: Chest Pain. absent: Palpitations, Edema Gastrointestinal: Abdominal Pain, Stool Changes, Nausea, Vomiting, Other (bloody stool x1). absent: Constipation, Diarrhea Genitourinary Female: absent: Dysuria, Frequency Musculoskeletal: absent: Arthralgias, Back Pain, Neck Pain Skin: absent: Rash, Pruritis, Skin Lesions Neurological: absent: Headache, Dizziness, Focal Weakness Endocrine: absent: Diaphoresis Hemo/Lymphatic: absent: Adenopathy, Easy Bleeding Physical Exam Vital Signs Reviewed: Yes Vital Signs Temp Pulse Resp BP Pulse Ox 05/12/18 11:54 98.2 F 87 20 140/74 98 Temperature: Afebrile Blood Pressure: Normal Pulse: Regular Respiratory Rate: Normal Appearance: Positive for: Well-Appearing, Non-Toxic Pain Distress: Mild Mental Status: Positive for: Alert and Oriented X 3 - Systems Exam Head: Present: Atraumatic, Normocephalic Pupils: Present: PERRL Extroacular Muscles: Present: EOMI Conjunctiva: Present: Normal Ears: Present: Normal, NORMAL TM Mouth: Present: Moist Mucous Membranes Pharnyx: Present: Normal. No: ERYTHEMA, EXUDATE Nose (External): Present: Atraumatic. No: Abrasion, Contusion Neck: Present: Normal Range of Motion. No: Meningeal Signs, MIDLINE TENDERNESS, JVD, Lymphadenopathy Respiratory/Chest: Present: Clear to Auscultation, Good Air Exchange. No: Respiratory Distress Cardiovascular: Present: Regular Rate and Rhythm, Normal S1, S2. No: Murmurs Abdomen: Present: Tenderness (epigastric ), Normal Bowel Sounds. No: Distention, Peritoneal Signs, Rebound, Guarding Back: Present: Normal Inspection. No: CVA Tenderness, Midline Tenderness Upper Extremity: Present: Normal Inspection Lower Extremity: Present: Normal Inspection Neurological: Present: GCS=15, CN II-XII Intact, Speech Normal Skin: Present: Warm, Dry Psychiatric: Present: Alert, Oriented x 3, Normal Insight Medical Decision Making ED Course and Treatment: 57 yr old F w/ of fibromyalgia, osteoperosis, anxiety, depression, gastritis p/w abdominal pain. Epigastric abdominal pain radiating to Flank. No urinary complaints, chest pain after vomiting which is likely gerd in nature. Vomited yesterday. No chest pressure, sob or orthopnea, pnd or leg swelling. Pt is on levoquin for ?UTI per pt started 05/10. likely colitis given recent abx, no indication for severe cdiff given no diarrhea today. will seek imaging and labs. No pelvic pain. No suprapubic pain. No complaints of vaginal d/c. Normal affect: pt denies any SI or HI. No abnl neuro findings, No meningeal signs. No fall or trauma noted per pt. 05/12/18 13:51 bedside guaic done with Yadi CUELLO chaperoning: No bloody / dark stool noted. No abnl to rectal exam labs largely unremarakble, pending UA / imaging 05/12/18 15:49 EKG shows NSR at 82 BPM with no STEMI. Interpreted by ER physician. 05/12/18 15:54 CT abdomen/pelvis, reviewed by radiologist: IMPRESSION: Left/distal rectosigmoid colon and rectal wall thickening may be exaggerated by under distension; correlate clinically for possibility of colitis/proctitis which cannot be excluded. Hypoattenuation of the liver compatible with hepatic steatosis. 05/12/18 16:03 Pt notes pain improved tolerating clears repeat abd exam non-ttp clear for d/c home w/ return indications and f/u instructed pt to d/c levoquin as she will be starting cipro: used manager leasing [id number] pt agreeable to plan - RAD Interpretation Radiology Orders: 05/12/18 12:23 ABDOMEN & PELVIS [ABD & PELVIS IV CONTRAST ONLY] [CT] Stat - Medication Orders Current Medication Orders: Sodium Chloride (Sodium Chloride 0.9%) 1,000 mls @ 100 mls/hr IV .Q10H JAISON Disposition/Present on Arrival - Present on Arrival Any Indicators Present on Arrival: No History of DVT/PE: No History of Uncontrolled Diabetes: No Urinary Catheter: No History of Decub. Ulcer: No History Surgical Site Infection Following: None - Disposition Have Diagnosis and Disposition been Completed?: Yes Diagnosis: Colitis Disposition: HOME/ ROUTINE Disposition Time: 16:04 Patient Problems: Current Active Problems Problem Status Onset Colitis Acute Condition: STABLE Discharge Instructions (ExitCare): Colitis (DC) Print Language: FRISIAN Additional Instructions: dejar de lillie levoquin STOP TAKING THE LEVOQUIN. TAKE THE NEW ANTIBIOTICS. SEAN URBAN, thank you for letting us take care of you today. Your provider was Kirill Franco and you were treated for abdominal pain. The emergency medical care you received today was directed at your acute symptoms. If you were prescribed any medication, please fill it and take as directed. It may take several days for your symptoms to resolve. Return to the Emergency Department if your symptoms worsen, do not improve, or if you have any other problems. Please contact your doctor or call one of the physicians/clinics you have been referred to that are listed on the Patient Visit Information form that is included in your discharge packet. Bring any paperwork you were given at discharge with you along with any medications you are taking to your follow up visit. Our treatment cannot replace ongoing medical care by a primary care provider outside of the emergency department. [facility] your care today. If you had an X-Ray or CT scan: A Radiologist will review the ED reading if any change in treatment is needed we will contact you. If you had a blood, urine, or wound culture: It will take several days for the results, if any change in treatment is needed we will contact you. If you had an STI test: It will take 48 hours for the results. Please call after 1 week if you have not heard back. Prescriptions: Ciprofloxacin HCl [Cipro] 500 mg PO BID 10 Days #20 tab Metronidazole [Flagyl] 500 mg PO BID 10 Days #30 tablet Referrals: Jarad Eng MD [Primary Care Provider] - Follow up with primary Mansi Barkley MD [Medical Doctor] - Follow up with primary [facility] [Outside] - Follow up with primary [facility] [Outside] - Follow up with primary [facility] [Outside] - Follow up with primary Forms: [employer] (Syrian)
[2018-05-12 13:10] LABS: BASO # 0.01 K/mm3 (0.0-2.0); BASO % 0.1 % (0.0-3.0); EOS % 0.5 % (1.5-5.0); HEMOGLOBIN 14.6 g/dL (12.0-16.0); LYMPH # 1.7 (1.2-3.4); MEAN CELL VOLUME 90.6 fl (80.0-105.0); MEAN CORPUSCULAR HEMOGLOBIN 30.5 pg (25.0-35.0); MEAN CORPUSCULAR HGB CONC 33.7 g/dl (31.0-37.0); MEAN PLATELET VOLUME 10.8 fl (7.0-11.0); MONO # 0.5 (0.1-0.6); MONO % 5.4 % (1.0-6.0); RBC 4.78 10^6/uL (3.5-6.1); RED CELL DISTRIBUTION WIDTH 13.3 % (11.5-14.5); WHITE BLOOD COUNT 8.7 10^3/uL (4.5-11.0)
[2018-05-12 13:22] LABS: ALB/GLOB RATIO 1.3 (1.1-1.8); ALBUMIN 4.1 g/dL (3.0-4.8); ALT/SGPT 33 U/L (7-56); AST/SGOT 34 U/L (14-36); BLOOD UREA NITROGEN 14 mg/dL (7-21); CALCIUM 9.4 mg/dL (8.4-10.5); GFR NON-AFRICAN AMERICAN > 60; LIPASE 38 U/L (23-300)
[2018-05-12 13:28] LABS: VENOUS BLOOD GAS BASE EXCESS 1.6 mmol/L (0.0-2.0); VENOUS BLOOD GAS PO2 28 mm/Hg (30-55); VENOUS BLOOD PH 7.31 (7.32-7.43)
[2018-05-12] MEDS ORDERED: Iohexol 350 MG/100 ML VIAL ONE (13:29)
[2018-05-12 15:32] LABS: URINE BILIRUBIN NEGATIVE (NEGATIVE); URINE BLOOD NEGATIVE (NEGATIVE); URINE GLUCOSE (UA) NEGATIVE (NEGATIVE); URINE LEUKOCYTE ESTERASE NEGATIVE Leu/uL (NEGATIVE); URINE PROTEIN NEGATIVE mg/dL (<30 mg/dL); URINE UROBILINOGEN 0.2 E.U./dL (<1 E.U./dL)
[2018-05-12 15:38] LABS: URINE APPEARANCE CLEAR (CLEAR); URINE COLOR YELLOW (YELLOW)
--- NOTE | 2018-05-12 15:48 | CT ---
Date of service: 05/12/2018 PROCEDURE: CT Abdomen and Pelvis with contrast HISTORY: back pain, bloody stool, abd pain COMPARISON: CT abdomen and pelvis without contrast performed 05/05/18 TECHNIQUE: Contrast dose: 100 mL Omnipaque 350 IV Radiation dose: Total exam DLP = 729.19 mGy-cm. This CT exam was performed using one or more of the following dose reduction techniques: Automated exposure control, adjustment of the mA and/or kV according to patient size, and/or use of iterative reconstruction technique. FINDINGS: LOWER THORAX: No visible consolidation, pleural effusion, or pneumothorax. LIVER: Hypoattenuation of the liver compatible with hepatic steatosis. GALLBLADDER AND BILE DUCTS: Cholecystectomy. PANCREAS: Unremarkable. SPLEEN: Unremarkable. ADRENALS: Unremarkable. KIDNEYS AND URETERS: The kidneys enhance symmetrically. No hydronephrosis or obstructing calculus identified. VASCULATURE: No aortic aneurysm. No atherosclerotic calcification or mural plaque present. BOWEL: Stomach is nondistended. Lack of oral contrast limits evaluation for bowel pathology. Bowel loops appear within normal limits of caliber without evidence of obstruction. Left/distal rectosigmoid colon and rectal wall thickening may be exaggerated by under distension; correlate clinically for possibility of colitis/proctitis which cannot be excluded. APPENDIX: No secondary signs of acute appendicitis. PERITONEUM: No significant free fluid. No definite free air. LYMPH NODES: No bulky adenopathy identified. BLADDER: Unremarkable. REPRODUCTIVE: Uterus is absent consistent with hysterectomy. BONES: No acute osseous abnormality is detected. OTHER FINDINGS: None. IMPRESSION: Left/distal rectosigmoid colon and rectal wall thickening may be exaggerated by under distension; correlate clinically for possibility of colitis/proctitis which cannot be excluded. Hypoattenuation of the liver compatible with hepatic steatosis.
[2018-05-12 16:55] VITALS: RESP 18; TEMP 97.8; O2SAT 100
[2018-05-12 16:56] VITALS: BP 133/86; PULSE 86
--- NOTE | 2018-05-12 20:50 | CARD ---
APPROVED REPORT Date of service: 05/12/2018 EKG Measurement Heart [id number] <Conclusion> Normal sinus rhythm Normal ECG
== END 2018-05-12 16:59 | disposition home or self-care (01) ==
LOC: ED 11:34
DX: K52.9 Noninfective gastroenteritis and colitis, unspecified (principal); M79.7 Fibromyalgia; M81.0 Age-related osteoporosis without current pathological fracture; F32.9 Major depressive disorder, single episode, unspecified; F41.9 Anxiety disorder, unspecified
CPT/HCPCS: 74177; 80053; 81003; 82803; 83690; 85025; 87040; 93005; 96374; 96375; 96376; 99284; J1885; J2405; J7030; Q9967